=== PATIENT | male | born 1970 | race Caucasian/White ===

== ENCOUNTER 2017-05-15 14:51 | Emergency (ER) | payer OTHER ==
[~2017-05-15] VITALS: Ht 170.2 cm; Wt 99.8 kg
[~2017-05-15 14:51] MED LIST: ATIVAN2 MG PO; CITALOPRAM HBR40 MG PO; HYDROCHLOROTHIA25 MG PO; LISINOPRIL40 MG; LISINOPRIL40 MG PO; OMEPRAZOLE20 MG PO; OXYBUTYNIN CHLOR5 MG PO; TRAZODONE HCL100 MG PO; ZOLPIDEM TARTRA10 MG PO
[2017-05-15] MEDS ORDERED: NORCO 10-325 T1 EACH PO ×2 (15:02→18:08)
[2017-05-15] MEDS ORDERED: ZOFRAN ODT4 MG PO ×2 (18:08→18:10)
[2017-05-15] MEDS ORDERED: PRILOSEC OTC20 MG PO (18:08)
== END 2017-05-15 18:35 | disposition home or self-care (01) ==
LOC: ED 14:51
DX: K27.9 Peptic ulcer, site unspecified, unspecified as acute or chronic, without hemorrhage or perforation (principal); I10 Essential (primary) hypertension; F33.2 Major depressive disorder, recurrent severe without psychotic features; F41.9 Anxiety disorder, unspecified; Z87.891 Personal history of nicotine dependence; Z98.890 Other specified postprocedural states
CPT/HCPCS: 74177; 80053; 81001; 83690; 85025; 96374; 96375; 99284; J1170; J2405; Q9967

== ENCOUNTER 2019-02-20 21:35 | Inpatient (IN) | payer OTHER ==
[~2019-02-20] VITALS: Ht 170.2 cm; Wt 85.9 kg
[~2019-02-20 21:35] MED LIST changes: +ALPRAZOLAM0.5 MG PO; +ANAFRANIL50 MG PO; +ATIVAN1 MG PO; +ATORVASTATIN CA40 MG PO; +CARTIA XT120 MG; -HYDROCHLOROTHIA25 MG PO; +HYDROCHLOROTHIA50 MG PO; +NICOTINE PATCH1 EAC4 TD; +NORCO 10-325 T1 EACH PO; +POTASSIUM CHLO20 ME1 PO; +PRAZOSIN HCL2 MG PO; +PRILOSEC OTC20 MG PO; +SUBOXONE 8 MG-1 EAC1 SL; +TOPROL XL25 MG PO; +VITAMIN B-1100 M1 PO; +WELLBUTRIN XL150 MG PO; +ZOFRAN ODT4 MG PO
--- OUTSIDE RECORDS SUMMARY | 2019-02-20 21:38 | XMS ---
PreManage Notification: ISA MARES Security Audit Partner Events No recent Security Events currently on file CRITERIA MET - [facility] - Has Care Guidelines - PDMP - [facility] - 2 Visits in 30 Days CARE PROVIDERS ANDRIA WILSON Physician Window/Distribution Clerk: Medical Current PHONE: Unknown Hilario has no Care Guidelines for this patient. Care History Medical/Surgical 12/26/2018 [facility] - PATIENT CURRENTLY AT [facility]. EEmily VISIT COUNT (12 MO.) 2 Yoel Chilel 3 [facility]. TOTAL 5 NOTE: Visits indicate total known visits. ED/UCC VISIT TRACKING (12 MO.) 02/20/2019 21:36 [facility]gu[facility] [place] TYPE: Emergency COMPLAINT: - WEAKNESS 02/19/2019 11:00 Yoel QUINONES [place] TYPE: Emergency DIAGNOSES: - Alcohol Withdrawl - Alcohol use, unspecified with intoxication, uncomplicated - Candidal stomatitis - Alcohol Intoxication 02/14/2019 16:54 Yoel QUINONES [facility] TYPE: Emergency DIAGNOSES: - Acute stress reaction - Alcohol Poisioning - Hyperkalemia - Alcohol Intoxication - Major depressive disorder, single episode, moderate - Alcohol use, unspecified with intoxication, uncomplicated - Hypo-osmolality and hyponatremia 12/26/2018 07:29 [facility]gu[facility] [place] TYPE: Emergency COMPLAINT: - MEDICATION REQUEST 12/25/2018 21:19 GIANCAR[facility] Angu[facility] [place] TYPE: Emergency COMPLAINT: - WITHDRAWALS DIAGNOSES: - Essential (primary) hypertension - Alcohol dependence with withdrawal, unspecified - Other longwall headgate operator (current) drug therapy - Major depressive disorder, single episode, unspecified - Hypokalemia - Anxiety disorder, unspecified - Nicotine dependence, unspecified, uncomplicated INPATIENT VISIT TRACKING (12 MO.) 12/26/2018 11:15 GIANCAR[facility] Angu[facility] [place] TYPE: Medical Surgical COMPLAINT: - ALCOHOL WITHDRAWAL DIAGNOSES: - Nicotine dependence, unspecified, uncomplicated - Gastro-esophageal reflux disease without esophagitis - Essential (primary) hypertension - Major depressive disorder, single episode, unspecified - Other longwall headgate operator (current) drug therapy - Constipation, unspecified - Thrombocytopenia, unspecified - Bronchitis, not specified as acute or chronic - Hypokalemia - Acute respiratory failure with hypoxia - Opioid dependence, uncomplicated - Physical restraint status - Major depressive disorder, single episode, unspecified - Sleep apnea, unspecified - Alcohol dependence with withdrawal delirium - Nicotine dependence, unspecified, uncomplicated - Sleep apnea, unspecified - Alcohol dependence with withdrawal delirium - Hypokalemia - Constipation, unspecified - Hemophilus influenzae [H. influenzae] as the cause of diseases classified elsewhere - Metabolic encephalopathy - Metabolic encephalopathy - Alcohol dependence with withdrawal, unspecified - Physical restraint status - Opioid dependence, uncomplicated - Hyperlipidemia, unspecified - Anuria and oliguria - Anuria and oliguria - Bronchitis, not specified as acute or chronic - Other chcf (current) drug therapy - Thrombocytopenia, unspecified - Insomnia, unspecified - Hemophilus influenzae [H. influenzae] as the cause of diseases classified elsewhere - Hyperlipidemia, unspecified - Insomnia, unspecified - Gastro-esophageal reflux disease without esophagitis - Essential (primary) hypertension - Sleep terrors [night terrors] - Acute respiratory failure with hypoxia - Sleep terrors [night terrors] [email or web address]
[2019-02-20] MEDS ORDERED: DOXEPIN HCL50 MG PO (23:07)
[2019-02-20] MEDS ORDERED: HYDROXYZINE PAM50 MG PO (23:09)
[2019-02-20] MEDS ORDERED: DULOXETINE HCL60 MG PO (23:12)
[2019-02-20] MEDS ORDERED: DULOXETINE HCL30 MG PO (23:13)
[2019-02-22] MEDS ORDERED: NYSTATIN100000 UN1 PO (15:15)
[2019-02-22] MEDS ORDERED: LATUDA60 MG PO (15:29)
[2019-02-22] MEDS ORDERED: ZESTRIL20 MG PO (15:30)
[2019-02-22] MEDS ORDERED: CHLORDIAZEPOXID25 MG PO (15:33)
[2019-02-24] MEDS ORDERED: GABAPENTIN300 MG PO (12:12)
[2019-02-24] MEDS ORDERED: CHLORDIAZEPOXID25 MG PO (12:13)
[2019-02-24] MEDS ORDERED: VISTARIL50 MG PO (12:16)
[2019-02-24] MEDS ORDERED: MAG-AL LIQUID30 ML PO (12:16)
[2019-02-24] MEDS ORDERED: ATENOLOL25 MG PO (12:17)
== END 2019-02-24 14:40 | disposition home or self-care (01) | DRG 897 ==
LOC: ED 21:35 → CCU 02-21 02:31
PROVIDERS: ADMIT Internal Medicine
DX: F10.231 Alcohol dependence with withdrawal delirium (principal); F11.20 Opioid dependence, uncomplicated; K70.10 Alcoholic hepatitis without ascites; I10 Essential (primary) hypertension; K21.9 Gastro-esophageal reflux disease without esophagitis; E78.5 Hyperlipidemia, unspecified; F41.8 Other specified anxiety disorders; F51.04 Psychophysiologic insomnia; G89.4 Chronic pain syndrome; Z79.899 Other long term (current) drug therapy
CPT/HCPCS: 36415; 70450; 70486; 72125; 80053; 80176; 81001; 83735; 85025; 96365; 96375; 96376; 99285-25; C9113; G0480; J2060; J2405; J2560; J3360; J3411; J3475; J3480; J7030; J7060; J7121; Q0177

== ENCOUNTER 2019-03-01 12:08 | Emergency (ER) | payer OTHER ==
[~2019-03-01] VITALS: Ht 170.2 cm; Wt 85.9 kg
[~2019-03-01 12:08] MED LIST changes: +ATENOLOL25 MG PO; +CHLORDIAZEPOXID25 MG PO; +DOXEPIN HCL50 MG PO; +DULOXETINE HCL30 MG PO; +DULOXETINE HCL60 MG PO; +GABAPENTIN300 MG PO; +HYDROXYZINE PAM50 MG PO; +LATUDA60 MG PO; +MAG-AL LIQUID30 ML PO; +NYSTATIN100000 UN1 PO; +VISTARIL50 MG PO; +ZESTRIL20 MG PO
--- OUTSIDE RECORDS SUMMARY | 2019-03-01 12:12 | XMS ---
PreManage Notification: ISA MARES Security Blockmason Events No recent Security Events currently on file CRITERIA MET - 6 ED Visits in 6 Months - [facility] - Has Care Guidelines - PDMP - [facility] - 2 Visits in 30 Days CARE PROVIDERS ANDRIA WILSON Physician Neon Sign Installer: Medical Current PHONE: Unknown Hilario has no Care Guidelines for this patient. Care History Medical/Surgical 02/21/2019 [facility] CASE MANAGEMENT REFERRAL MADE- PATIENT HAS [facility] AND NO PCP. 12/26/2018 [facility] - PATIENT CURRENTLY AT [facility]. Manuel [facility]12 MO.) [facility] NOTE: Visits indicate total known visits. ED/UCC VISIT TRACKING (12 MO.) 03/01/2019 12:09 [facility] Angu[facility] [place] TYPE: Emergency COMPLAINT: - ALCOHOL WITHDRAWAL, DETOX 02/20/2019 21:36 GIANCARLO Anguiano OR TYPE: Emergency [...] Alcohol dependence with withdrawal, unspecified - Other tank terminal gauger (current) drug therapy - Major depressive disorder, single episode, unspecified - Hypokalemia - Anxiety disorder, unspecified - Nicotine dependence, unspecified, uncomplicated INPATIENT VISIT TRACKING (12 MO.) 02/21/2019 02:31 GIANCARLO Anguiano OR TYPE: Critical Care COMPLAINT: - ALCOHOL WITHDRAWAL DIAGNOSES: - Psychophysiologic insomnia - Alcoholic hepatitis without ascites - Other tank terminal gauger (current) drug therapy - Other specified anxiety disorders - Psychophysiologic insomnia - Gastro-esophageal reflux disease without esophagitis - Gastro-esophageal reflux disease without esophagitis - Chronic pain syndrome - Opioid dependence, uncomplicated - Alcoholic hepatitis without ascites - Hyperlipidemia, unspecified - Other intermediate (current) drug therapy - Chronic pain syndrome - Essential (primary) hypertension - Opioid dependence, uncomplicated - Hyperlipidemia, unspecified - Other specified anxiety disorders - Alcohol dependence with withdrawal delirium - Essential (primary) hypertension 12/26/2018 11:15 [facility] Anguiano [place] TYPE: Medical Surgical COMPLAINT: - ALCOHOL WITHDRAWAL DIAGNOSES: - Nicotine dependence, unspecified, uncomplicated - Gastro-esophageal reflux disease without esophagitis - Essential (primary) hypertension - Major depressive disorder, single episode, unspecified - Other tank terminal gauger (current) drug therapy - Constipation, unspecified - [...] specified as acute or chronic - Other tank terminal gauger (current) drug therapy - Thrombocytopenia, unspecified - Insomnia, unspecified - Hemophilus influenzae [H. influenzae] as the cause of diseases classified elsewhere - Hyperlipidemia, unspecified - Insomnia, unspecified - Gastro-esophageal reflux disease without esophagitis - Essential (primary) hypertension - Sleep terrors [night terrors] - Acute respiratory failure with hypoxia - Sleep terrors [night terrors] [email or web address]
[2019-03-01] MEDS ORDERED: LISINOPRIL40 MG PO (13:10)
[2019-03-01] MEDS ORDERED: METOPROLOL SUCC25 MG PO (13:11)
[2019-03-01] MEDS ORDERED: OXYBUTYNIN CHLOR5 MG PO (13:12)
[2019-03-01] MEDS ORDERED: HYDROCHLOROTHIA50 MG PO (13:13)
[2019-03-01] MEDS ORDERED: CARTIA XT120 MG PO (13:13)
[2019-03-01] MEDS ORDERED: CHLORDIAZEPOXID25 MG PO (13:31)
[2019-03-01] MEDS ORDERED: ONDANSETRON ODT8 MG PO (13:38)
== END 2019-03-01 16:41 | disposition home or self-care (01) ==
LOC: ED 12:08
DX: F10.10 Alcohol abuse, uncomplicated (principal); I10 Essential (primary) hypertension; F32.9 Major depressive disorder, single episode, unspecified; F41.9 Anxiety disorder, unspecified; F17.200 Nicotine dependence, unspecified, uncomplicated; Z79.899 Other long term (current) drug therapy
CPT/HCPCS: 99284